=== PATIENT | female | born 1980 | race Caucasian/White ===

== ENCOUNTER 2021-01-22 12:25 | Emergency (ER) | payer BC, OTHER ==
[~2021-01-22] VITALS: Ht 162.5 cm; Wt 54.4 kg
[~2021-01-22 12:25] MED LIST: AMOX500C2 PO
[2021-01-22 12:54] LABS: BASOPHILS % (AUTO) 1 % (0-10); EOSINOPHILS # (AUTO) 0.2 10^3/uL (0.0-0.3); EOSINOPHILS % (AUTO) 3 % (0-10); HEMATOCRIT 44 % (35-52); HEMOGLOBIN 14.4 g/dL (11.5-16.0); LYMPHOCYTES # (AUTO) 1.8 10^3/uL (1.0-4.0); LYMPHOCYTES % (AUTO) 24 % (12-44); MEAN CORPUSCULAR HEMOGLOBIN 31 pg (25-34); MEAN CORPUSCULAR HGB CONC 33 g/dL (32-36); MEAN CORPUSCULAR VOLUME 94 fL (80-99); MEAN PLATELET VOLUME 10.2 fL (9.0-12.2); MONOCYTES # (AUTO) 0.6 10^3/uL (0.0-1.0); MONOCYTES % (AUTO) 8 % (0-12); NEUTROPHILS # (AUTO) 4.8 10^3/uL (1.8-7.8); NEUTROPHILS % (AUTO) 65 % (42-75); PLATELET COUNT 271 10^3/uL (130-400); WHITE BLOOD COUNT 7.5 10^3/uL (4.3-11.0)
[2021-01-22] MEDS ORDERED: LACTATED RINGERS 1,000 ML IV ONE ×2 (13:00→14:00)
[2021-01-22] MEDS ORDERED: diphenhydrAMINE 50 MG/ML INJ (BENADRYL) IVP ONE (13:00)
[2021-01-22 13:07] LABS: ALBUMIN 4.7 GM/DL (3.2-4.5); CHLORIDE 102 MMOL/L (98-107)
[2021-01-22 13:08] LABS: POTASSIUM 3.8 MMOL/L (3.6-5.0); SODIUM 140 MMOL/L (135-145)
[2021-01-22 13:09] LABS: CALCIUM 9.7 MG/DL (8.5-10.1)
[2021-01-22 13:10] LABS: GLUCOSE 113 MG/DL (70-105); TOTAL PROTEIN 7.7 GM/DL (6.4-8.2)
[2021-01-22 13:11] LABS: CARBON DIOXIDE 24 MMOL/L (21-32)
[2021-01-22 13:12] LABS: BILIRUBIN,TOTAL 0.5 MG/DL (0.1-1.0)
[2021-01-22 13:13] LABS: ALKALINE PHOSPHATASE 75 U/L (40-136)
[2021-01-22 13:14] LABS: GFR ESTIMATED 79
[2021-01-22 13:15] LABS: BUN/CREATININE RATIO 23
[2021-01-22 13:16] LABS: ALANINE AMINOTRANSFERASE 15 U/L (0-55); MAGNESIUM 1.9 MG/DL (1.6-2.4)
--- NOTE | 2021-01-22 13:21 | ED General ---
General Chief Complaint: Allergic Reaction Stated Complaint: POSS FOOD REACTION Nursing Triage Note: PT AMB TO RM 2 WITH COMPLAINT FOOD REACTION. STATES ATE [employer] SEEDS AND BEGAN FEELING FLUSHED, HEART RACING, AND HOT. PT STATES SHE ALSO BECAME VERY RED. Source of Information: Patient History of Present Illness Date Seen by Provider: Jan 22, 2021 Time Seen by Provider: 12:35 Initial Comments PT ARRIVES VIA POV FROM [place]--SON DROVE HER HERE/THEY LIVE IN [place]. PT WAS AT WORK ( [employer]OC[employer] IN [place]), AND AROUND 10:00 AM THIS MORNING, SHE ATE [employer] SEED/NUTS ( STATES SHE AND HER SISTER GOT SOME "BECAUSE THEY ARE SUPPOSED TO PREVENT CANCER" BOTH OF THEIR PARENTS HAD CANCER) STATES SHE CRUSHED UP "A BUNCH" AND PUT THEM IN HER YOGURT AND ATE THEM--HAS NOT EATEN THEM BEFORE 20 MINUTES LATER, SHE BEGAN TO HAVE MULTIPLE SYMPTOMS STATES SHE STARTED FEELING VERY FLUSHED, FELT VERY HOT, FELT HER HEART RACING, FELT LIKE SHE WAS GOING TO PASS OUT, FELT VERY "FOGGY" AND FELT "DRUNK" AND "FELT VERY WEIRD IN THE HEAD" FEELS LIKE HER SPEECH IS A LITTLE SLURRED NO CHEST PAIN NO DIFFICULTY BREATHING NO NAUSEA/VOMITING/DIARRHEA NO ABDOMINAL PAIN NO RASH OR ITCHING NO SWELLING ANYWHERE NO COUGH NO DIFFICULTY SWALLOWING NO HEADACHE NO PARESTHESIAS OR MOTOR DEFICITS STATES SHE THEN LOOKED IT UP, AND IS SAID SHE WAS ONLY SUPPOSED TO EAT ONE NUT A WEEK STATES SHE CALLED HER DR. --DR. JIMI GERBER--AND HE TOLD HER TO DRIVE HERE TO [facility] PCP: DR. JIMI GERBER Allergies and Home Medications Allergies Coded Allergies: cephalexin (Verified Allergy, Unknown, 01/22/21) Patient Home Medication List Home Medication List Reviewed: Yes Amoxicillin (Amoxicillin) 500 Mg Capsule, 1 EACH PO BID, (Reported) Entered as Reported by: HAYDE BROWN on 11/17/11 2344 Review of Systems Review of Systems Constitutional: see HPI, dizziness EENTM: no symptoms reported; No throat pain, No throat swelling Respiratory: no symptoms reported; No cough, No short of breath Cardiovascular: see HPI, palpitations Gastrointestinal: no symptoms reported; No abdominal pain, No diarrhea, No nausea, No vomiting Genitourinary: no symptoms reported Musculoskeletal: no symptoms reported Skin: see HPI (FLUSHED/RED) Psychiatric/Neurological: See HPI, Anxiety; Denies Headache, Denies Numbness, Denies Paresthesia, Denies Seizure, Denies Tingling, Denies Weakness Hematologic/Lymphatic: No Symptoms Reported Immunological/Allergic: no symptoms reported Past Nuuzmvl-Zsgpad-Hjczuk Hx Patient Social History Tobacco Use?: Yes Smoking Status: Current Someday Smoker Use of E-Cig and/or Vaping dev: No Substance use?: No Alcohol Use?: Yes Alcohol Frequency: Once in a while Pt feels they are or have been: No Past Medical History Surgery/Hospitalization HX: VARICOSE VEIN SURGERY HYSTERECTOMY/BILATERAL SALPINGO-OOPHORECTOMY Surgeries: Yes Hysterectomy, Oophorectomy, Vascular Surgery Respiratory: No Cardiac: Yes (VARICOSE VEIN SURGERY) Neurological: No : No Reproductive Disorders: Yes (HYSTERECTOMY/BSO) Female Reproductive Disorders: Menstrual Problems 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 oz. kg; 20.00 BMI Method:Stated General Appearance: No Apparent Distress, WD/WN, Anxious, Thin, Other (VERY ANXIOUS AND TALKING NON-STOP, SPEECH IS CLEAR AT THIS TIME. ) HEENT: PERRL/EOMI, TMs Normal, Normal ENT Inspection, Pharynx Normal, Moist Mucous Membranes, Other (NO SWELLING TO LIPS, TONGUE OR ORAL MUCOSA) Neck: Normal Inspection Respiratory: Normal Breath Sounds, No Accessory Muscle Use, No Respiratory Distress Cardiovascular: Regular Rate, Rhythm, No Edema, No JVD, No Murmur, Normal Peripheral Pulses Gastrointestinal: Non Tender, Soft Back: Normal Inspection Extremity: Normal Inspection, No Pedal Edema Neurologic/Psychiatric: Alert, Oriented x3, No Motor/Sensory Deficits, speech language pathology assistant II- XII Norm as Tested Skin: Warm/Dry, Other (ENTIRE BODY VERY FLUSHED. NO ACTUAL RASH. ) Focused Exam Lactate Level 01/22/21 13:30: Lactic Acid Level 1.69 Lactic Acid Level Laboratory Tests Test 01/22/21 13:30 Lactic Acid Level 1.69 MMOL/L (0.50-2.00) Progress/Results/Core Measures Suspected Sepsis SIRS Temperature: Pulse: 74 Respiratory Rate: 18 Laboratory Tests 01/22/21 12:45: White Blood Count 7.5 Blood Pressure 134 /89 Mean: 104 01/22/21 13:30: Lactic Acid Level 1.69 Laboratory Tests 01/22/21 12:45: Creatinine 0.80, Platelet Count 271, Total Bilirubin 0.5 Results/Orders Lab Results Laboratory Tests Test 01/22/21 12:45 01/22/21 13:27 01/22/21 13:30 01/22/21 14:14 Range/Units White Blood Count 7.5 4.3-11.0 10^3/uL Red Blood Count 4.65 3.80-5.11 10^6/uL Hemoglobin 14.4 11.5-16.0 g/dL Hematocrit 44 35-52 % Mean Corpuscular Volume 94 80-99 fL Mean Corpuscular Hemoglobin 31 25-34 pg Mean Corpuscular Hemoglobin Concent 33 32-36 g/dL Red Cell Distribution Width 12.6 10.0-14.5 % Platelet Count 271 130-400 10^3/uL Mean Platelet Volume 10.2 9.0-12.2 fL Immature Granulocyte % (Auto) 0 % Neutrophils (%) (Auto) 65 42-75 % Lymphocytes (%) (Auto) 24 12-44 % Monocytes (%) (Auto) 8 0-12 % Eosinophils (%) (Auto) 3 0-10 % Basophils (%) (Auto) 1 0-10 % Neutrophils # (Auto) 4.8 1.8-7.8 10^3/uL Lymphocytes # (Auto) 1.8 1.0-4.0 10^3/uL Monocytes # (Auto) 0.6 0.0-1.0 10^3/uL Eosinophils # (Auto) 0.2 0.0-0.3 10^3/uL Basophils # (Auto) 0.0 0.0-0.1 10^3/uL Immature Granulocyte # (Auto) 0.0 0.0-0.1 10^3/uL Sodium Level 140 135-145 MMOL/L Potassium Level 3.8 3.6-5.0 MMOL/L Chloride Level 102 98-107 MMOL/L Carbon Dioxide Level 24 21-32 MMOL/L Anion Gap 14 5-14 MMOL/L Blood Urea Nitrogen 18 7-18 MG/DL Creatinine 0.80 0.60-1.30 MG/DL Estimat Glomerular Filtration Rate 79 BUN/Creatinine Ratio 23 Glucose Level 113 H 70-105 MG/DL Calcium Level 9.7 8.5-10.1 MG/DL Corrected Calcium 8.5-10.1 MG/DL Magnesium Level 1.9 1.6-2.4 MG/DL Total Bilirubin 0.5 0.1-1.0 MG/DL Aspartate Amino Transf (AST/SGOT) 22 5-34 U/L Alanine Aminotransferase (ALT/SGPT) 15 0-55 U/L Alkaline Phosphatase 75 40-136 U/L Total Protein 7.7 6.4-8.2 GM/DL Albumin 4.7 H 3.2-4.5 GM/DL TSH [place] Testing 2.24 0.35-4.94 UIU/ML Blood Gas Puncture Site RT RAD R BRACHIAL Blood Gas Patient Temperature 36.8 36.8 Arterial Blood pH 7.36 L 7.41 7.37-7.43 Arterial Blood Partial Pressure CO2 50 H 41 35-45 MMHG Arterial Blood Partial Pressure O2 33 *L 89 79-93 MMHG Arterial Blood HCO3 28 H 26 23-27 MMOL/L Arterial Blood Total CO2 29.4 26.9 21.0-31.0 MMOL/L Arterial Blood Oxygen Saturation 55 L 97 94-100 % Arterial Blood Base Excess 2.9 H 1.4 -2.5-2.5 MMOL/L Ivan Test YES-POS YES-POS Blood Gas Ventilator Setting NO NO Blood Gas Inspired Oxygen ROOM AIR ROOM AIR Lactic Acid Level 1.69 0.50-2.00 MMOL/L My Orders Orders - VANITA STEVE DO Ed Iv/Invasive Line Start (01/22/21 12:46) Monitor-Rhythm Ecg Trace Only (01/22/21 12:46) Cbc With Automated Diff (01/22/21 12:46) Comprehensive Metabolic Panel (01/22/21 12:46) Magnesium (01/22/21 12:46) Thyroid Analyzer (01/22/21 12:46) Ed Iv/Invasive Line Start (01/22/21 12:46) Lactated Ringers (Lr 1000 Ml Iv Solution (01/22/21 13:00) Diphenhydramine Injection (Benadryl Inje (01/22/21 13:00) Ekg Tracing (01/22/21 13:10) Arterial Blood Gas (01/22/21 13:16) Lactic Acid Analyzer (01/22/21 13:16) Ed Iv/Invasive Line Start (01/22/21 13:59) Lactated Ringers (Lr 1000 Ml Iv Solution (01/22/21 14:00) General/Regular (01/22/21 Lunch) Arterial Blood Gas (01/22/21 14:14) Arterial Blood Draw (01/22/21 ) Medications Given in ED Vital Signs/I&O 01/22/21 01/22/21 12:36 16:20 Pulse 74 59 Resp 18 13 B/P (MAP) 134/89 (104) 116/70 Pulse Ox 100 97 O2 Delivery Room Air Room Air 01/23/21 00:00 Intake Total 1000 ml Balance 1000 ml Capillary Refill : Less Than 3 Seconds Blood Pressure Mean: 104 Progress Note : Progress Note GIVEN IV FLUIDS AND BENADRYL IMMEDIATE IMPROVEMENT IN SYMPTOMS WITH BENADRYL, AND PT IS NO LONGER FLUSHED AND PT IS CALMER PT OBSERVED IN ER FOR SEVERAL HOURS--6 1/2 HOURS FROM TIME OF INGESTION PT HAD UNEVENTFUL ER STAY PT REMAINED SYMPTOM FREE FOR REMAINDER OF ER STAY VITALS STABLE PT IS ANXIOUS TO GO HOME, STATES SHE FEELS FINE NOW. ECG Initial ECG Impression Date: Jan 22, 2021 Initial ECG Impression Time: 13:40 Initial ECG Rate: 59 Initial ECG Rhythm: Normal Sinus Initial ECG Comparisson: No Previous ECG Available Departure Communication (Admissions) 1312--CALLED POISON CONTROL. RECOMMEND BASELINE LACTIC ACID LEVEL AND ABG. CYANIDE LEVEL IS NOT RECOMMENDED. SUPPORTIVE CARE, OBSERVE FOR 8 HOURS FROM TIME OF INGESTION AND IF NO RESPIRATORY, TIMBER DEADENER OR CARDIAC SYMPTOMS, MAY BE DISMISSED. 1545--CALLED DR. GERBER'S OFFICE, HE IS NOT IN OFFICE AT THIS TIME. 1600--SPOKE WITH POISON CONTROL AND THEY ADVISE THAT PT MAY BE MEDICALLY CLEARED AT THIS TIME, SHE HAS NOT HAD ANY SYMPTOMS FOR SEVERAL HOURS. Impression Primary Impression: Accidental ingestion of toxic substance Additional Impression: ACCIDENTAL CYANIDE INGESTION Disposition: HOME, SELF-CARE Condition: Improved Departure-Patient Inst. Decision time for Depature: 16:07 Referrals: JIMI GERBER MD (PCP/Family) Primary Care Physician Patient Instructions: ACCIDENTAL INGESTION NON-TOXIC, Chemical Ingestion (DC) Add. Discharge Instructions: EAT AND DRINK USUAL AVOID ANY STONE-FRUITS RETURN TO ER IF PROBLEMS All discharge instructions reviewed with patient and/or family. Voiced understanding. VANITA STEVE DO Jan 22, 2021 13:21
[2021-01-22 13:36] LABS: TSH (THYROID ANALYZER) 2.24 UIU/ML (0.35-4.94)
[2021-01-22 13:40] LABS: ABG BASE EXCESS 2.9 MMOL/L (-2.5-2.5); ABG OXYGEN SATURATION 55 % (94-100); ABG PCO2 50 MMHG (35-45); ABG PH 7.36 (7.37-7.43); ABG TCO2 29.4 MMOL/L (21.0-31.0)
[2021-01-22 13:41] LABS: ABG PO2 33 MMHG (79-93)
[2021-01-22 13:42] LABS: ALLENS TEST YES-POS; INSPIRED O2 ROOM AIR; PATIENT TEMP 36.8; VENTILATOR NO
[2021-01-22 14:20] LABS: ABG BASE EXCESS 1.4 MMOL/L (-2.5-2.5); ABG OXYGEN SATURATION 97 % (94-100); ABG PCO2 41 MMHG (35-45); ABG PH 7.41 (7.37-7.43); ABG PO2 89 MMHG (79-93); ABG TCO2 26.9 MMOL/L (21.0-31.0)
[2021-01-22 14:21] LABS: ALLENS TEST YES-POS; PATIENT TEMP 36.8; VENTILATOR NO
[2021-01-22 14:22] LABS: INSPIRED O2 ROOM AIR
[2021-01-22 16:20] VITALS: BP 116/70
== END 2021-01-22 16:20 | disposition home or self-care (01) ==
LOC: EDUNIT# 12:25 → ER 12:29
DX: T65.0X1A Toxic effect of cyanides, accidental (unintentional), initial encounter (principal); F17.290 Nicotine dependence, other tobacco product, uncomplicated
CPT/HCPCS: 36415; 36600; 80053; 82805; 83605; 83735; 84443; 85025; 93005; 93041

== ENCOUNTER → 2021-07-26 | Outpatient (CLI) | payer BC ==
--- NOTE | 2021-07-26 15:39 | Diagnostic Imaging Report ---
PROCEDURE: MRI right joint lower extremity without contrast. TECHNIQUE: Multiplanar, multisequence non contrast-enhanced MRI of the right lower extremity was accomplished. INDICATION: Fall with injury of the right knee one year ago. COMPARISON: None. FINDINGS: No acute fracture is seen in the right knee. There is mild bone marrow edema at the median ridge of the patella. There is a large joint effusion and a small Nolan's cyst. Articular cartilage in the patellofemoral compartment demonstrates moderate thinning with small full-thickness defects at the lateral trochlea and the median ridge. There is additional articular surface irregularity of the lateral facet. The cartilage in the medial compartment demonstrates no full-thickness defects. The cartilage in the lateral compartment demonstrates mild heterogeneity. The medial meniscus demonstrates mild intrasubstance degeneration posteriorly. No tear is seen. The lateral meniscus also appears intact. Please note that the signal was quite low on the coronal sequence and there is suboptimal evaluation. The anterior and posterior cruciate ligaments are intact. The medial collateral ligament and the lateral collateral ligamentous complex are intact. The extensor mechanism is intact. The medial and lateral retinacula are intact. Soft tissues about the knee are otherwise unremarkable. IMPRESSION: 1. Mild cartilage loss with small full-thickness defects in the patellofemoral compartment. 2. Large right knee joint effusion with a small Nolan's cyst. 3. Mild intrasubstance degeneration of the medial meniscus. No tear is seen. Dictated by: Dictated on workstation # [id number]
== END ==
LOC: RAD 14:45
PROVIDERS: ATTEND Family Medicine
DX: S83.8X1A Sprain of other specified parts of right knee, initial encounter (principal); M71.21 Synovial cyst of popliteal space [Baker], right knee; M17.11 Unilateral primary osteoarthritis, right knee; W19.XXXA Unspecified fall, initial encounter
CPT/HCPCS: 73721

== ENCOUNTER → 2022-11-13 | Outpatient (CLI) | payer BC ==
--- NOTE | 2022-11-14 11:14 | Diagnostic Imaging Report ---
Indication: Routine screening. Comparison is made with prior mammograms from 11/06/2021 and 11/10/2019. 2-D and 3-D bilateral screening mammography was performed with CAD. Both breasts are heterogeneously dense, limiting the sensitivity of mammography. The parenchymal pattern is stable. No mass or malignant-appearing microcalcifications are seen. Axillae are unremarkable. IMPRESSION: BI-RADS Category 1 No mammographic features suspicious for malignancy are identified. ACR BI-RADS Category 1: Negative. Result letter will be mailed to the patient. Note: At least 10% of breast cancer is not imaged by mammography. Dictated by: Dictated on workstation # [id number]
== END ==
LOC: RAD 10:27
PROVIDERS: ATTEND Family Medicine
DX: Z12.31 Encounter for screening mammogram for malignant neoplasm of breast (principal)
CPT/HCPCS: 77063; 77067